=== PATIENT | female | born 1960 | race Caucasian/White ===

== ENCOUNTER 2017-11-11 08:46 | Day surgery (SDC) | payer BC, SELFPAY | END 2017-11-11 09:53 | disposition home or self-care (01) | PROVIDERS: Family Provider Family Medicine; Visit Provider Nurse Anesthetist, Certified Registered | DX: M50.10 Cervical disc disorder with radiculopathy, unspecified cervical region (principal) | CPT/HCPCS: 62321; J1040; Q9966 ==

== ENCOUNTER → 2018-01-09 15:22 | Outpatient (POV) | payer BC, SELFPAY ==
[2018-01-09 15:33] VITALS: BP 122/72; PULSE 69; RESP 18; O2SAT 97; BMI 23.8
--- NOTE | 2018-01-09 15:45 | HMH.PAINSOAP ---
[facility] Pain Management SOAP Note Subjective:: Patient is a pleasant 57-year-old white female who presents today to discuss her cervical neck pain. Patient has just completed a set of 3 cervical epidural steroid injections. She rates her pain a 3 out of 10 today. She states that she is doing very well. Her functionality has increased. Patient states that her daily activities have become easier and her neck pain is almost completely relieved.. ROS General: no recent weight change, no fever, no sleep disturbances Respiratory: no cough, no shortness of air, no recurring pulmonary infections Cardiovascular/Peripheral Vascular: No chest pain, No palpitations, no edema, no shortness of breath. Gastrointestinal: no incontinence, normal bowel movements reported Genitourinary: no incontinence Musculoskeletal: Neck pain Psychiatric: normal mood/ affect Neurological: Weakness at times in bilateral lower extremity, [denies balance issues] Objective:: Physical Exam General: Alert and oriented x3, no acute distress, pleasant and cooperative, [on room air] Lungs: Resps E/U, Symmetrical chest expansion, Eyes: PERRL Musculoskeletal: Flexion and extension of cervical spine somewhat guarded secondary to pain, deep tendon reflexes normal, strength in upper and lower extremities [5/5], normal gait noted Neurological: speech clear, search analyst equal, no gross sensory deficits Assessment:: Degenerative disc disease of the cervical spine and cervical radiculopathy. Plan:: We will follow-up with this patient on an as-needed basis. We had a long discussion about contacting the office when the pain begins to return. Patient will call the office and schedule a follow-up at that time. Patient doing extremely well at this time due to her last 3 cervical epidural steroid injections. This note was dictated using voice recognition software may contain errors or omissions
--- NOTE | 2018-01-09 15:48 | P.CONS_ITS ---
[facility] Pain Management SOAP Note Subjective:: Patient is a pleasant 57-year-old white female who presents today to discuss her cervical neck pain. Patient has just completed a set of 3 cervical epidural steroid injections. She rates her pain a 3 out of 10 today. She states that she is doing very well. Her functionality has increased. Patient states that her daily activities have become easier and her neck pain is almost completely relieved.. ROS General: no recent weight change, no fever, no sleep disturbances Respiratory: no cough, no shortness of air, no recurring pulmonary infections Cardiovascular/Peripheral Vascular: No chest pain, No palpitations, no edema, no shortness of breath. Gastrointestinal: no incontinence, normal bowel movements reported Genitourinary: no incontinence Musculoskeletal: Neck pain Psychiatric: normal mood/ affect Neurological: Weakness at times in bilateral lower extremity, [denies balance issues] Objective:: Physical Exam General: Alert and oriented x3, no acute distress, pleasant and cooperative, [ on room air] Lungs: Resps E/U, Symmetrical chest expansion, Eyes: PERRL Musculoskeletal: Flexion and extension of cervical spine somewhat guarded secondary to pain, deep tendon reflexes normal, strength in upper and lower extremities [5/5], normal gait noted Neurological: speech clear, customs appraiser equal, no gross sensory deficits Assessment:: Degenerative disc disease of the cervical spine and cervical radiculopathy. Plan:: We will follow-up with this patient on an as-needed basis. We had a long discussion about contacting the office when the pain begins to return. Patient will call the office and schedule a follow-up at that time. Patient doing extremely well at this time due to her last 3 cervical epidural steroid injections. This note was dictated using voice recognition software may contain errors or omissions
== END ==
PROVIDERS: Family Provider Family Medicine; PCP Family Medicine; Visit Provider Clinical Nurse Specialist Family Health
DX: M54.12 Radiculopathy, cervical region (principal)
CPT/HCPCS: 99212

== ENCOUNTER → 2019-03-26 15:26 | Outpatient (POV) | payer BC, SELFPAY ==
--- NOTE | 2019-03-26 15:39 | P.CONS_ITS ---
[facility] Pain Management SOAP Note Subjective:: She is a pleasant 58-year-old white female who presents today for follow-up. Patient has had cervical epidural steroid injections and trigger point injections with good relief in the past. Patient is interested in repeating this her pain is begin to return after 4 months. Patient is having muscle s pasms in her neck and upper trapezius. Rates her pain a 4 out of 10. ROS General: no recent weight change, no fever, no sleep disturbances Respiratory: no cough, no shortness of air, no recurring pulmonary infections Cardiovascular/Peripheral Vascular: No chest pain, No palpitations, no edema, no shortness of breath. Gastrointestinal: no incontinence, normal bowel movements reported Genitourinary: no incontinence Musculoskeletal: Myofascial pain Psychiatric: normal mood/ affect Neurological: [denies weakness in extremities], [denies balance issues] Objective:: Physical Exam General: Alert and oriented x3, no acute distress, pleasant and cooperative, [on room air] Lungs: Resps E/U, Symmetrical chest expansion, Eyes: PERRL Musculoskeletal: Flexion and extension of cervical spine somewhat guarded secondary to pain, deep tendon reflexes normal, strength in upper and lower extremities [5/5], normal gait noted, palpable trigger points bilateral cervical paraspinous Neurological: speech clear, sales performance analyst equal, no gross sensory deficits Assessment:: Myofascial pain syndrome Plan:: We will schedule the patient for bilateral cervical paraspinous trigger point injections. Patient has had good relief with these in the past I do believe they would be beneficial for her. I will follow-up with the patient after injection reassess her symptoms at that time. Dr. Pa has reviewed this note and agrees with this plan of care. This note was dictated using voice recognition software and may contain errors or omissions
[2019-03-26 15:48] VITALS: BP 118/89; PULSE 78; RESP 18; O2SAT 98; BMI 25.0
== END ==
PROVIDERS: PCP Family Medicine; Visit Provider Clinical Nurse Specialist Family Health
DX: M79.18 Myalgia, other site (principal)
CPT/HCPCS: 99212

== ENCOUNTER → 2019-05-08 09:02 | Outpatient (POV) | payer BC, SELFPAY ==
--- NOTE | 2019-05-08 09:20 | HMH.PAINSOAP ---
[facility] Pain Management SOAP Note Subjective:: Patient is a pleasant 58-year-old white female who presents today for follow-up after cervical paraspinous trigger point injections. Patient says that she had good relief with this. She rates her pain a 3 out of 10 today. She says she had about 80% relief with this. She is continuing a home stretching program and NSAIDs. ROS General: no recent weight change, no fever, no sleep disturbances Respiratory: no cough, no shortness of air, no recurring pulmonary infections Cardiovascular/Peripheral Vascular: No chest pain, No palpitations, no edema, no shortness of breath. Gastrointestinal: no incontinence, normal bowel movements reported Genitourinary: no incontinence Musculoskeletal: Neck pain Psychiatric: normal mood/ affect, [denies depression], [denies anxiety] Neurological: [denies weakness in extremities], [denies balance issues] Objective:: Physical Exam General: Alert and oriented x3, no acute distress, pleasant and cooperative, [on room air] Lungs: Resps E/U, Symmetrical chest expansion, [CTA bilateral] Eyes: PERRL Musculoskeletal: Flexion and extension of cervical spine somewhat guarded secondary to pain, deep tendon reflexes normal, strength in upper and lower extremities [5/5], normal gait noted Neurological: speech clear, commercial lines account assistant equal, no gross sensory deficits Assessment:: Myofascial pain syndrome Plan:: Overall, the patient is doing well today. She had good relief with the injections. She will call to follow-up with an appointment after she gets back from vacation. She has been instructed to call the office if she has any concerns. Dr. Pa has reviewed this note and agrees with this plan of care. This note was dictated using voice recognition software and may contain errors or omissions
[2019-05-08 09:22] VITALS: BP 112/74; PULSE 73; RESP 18; O2SAT 98; BMI 22.3
--- NOTE | 2019-05-08 09:23 | P.CONS_ITS ---
[facility] Pain Management SOAP Note Subjective:: Patient is a pleasant 58-year-old white female who presents today for follow-up after cervical paraspinous trigger point injections. Patient says that she had good relief with this. She rates her pain a 3 out of 10 today. She says she had about 80% relief with this. She is continuing a home stretching program and NSAIDs. ROS General: no recent weight change, no fever, no sleep disturbances Respiratory: no cough, no shortness of air, no recurring pulmonary infections Cardiovascular/Peripheral Vascular: No chest pain, No palpitations, no edema, no shortness of breath. Gastrointestinal: no incontinence, normal bowel movements reported Genitourinary: no incontinence Musculoskeletal: Neck pain Psychiatric: normal mood/ affect, [denies depression], [denies anxiety] Neurological: [denies weakness in extremities], [denies balance issues] Objective:: Physical Exam General: Alert and oriented x3, no acute distress, pleasant and cooperative, [on room air] Lungs: Resps E/U, Symmetrical chest expansion, [CTA bilateral] Eyes: PERRL Musculoskeletal: Flexion and extension of cervical spine somewhat guarded secondary to pain, deep tendon reflexes normal, strength in upper and lower extremities [5/5], normal gait noted Neurological: speech clear, model maker firearms equal, no gross sensory deficits Assessment:: Myofascial pain syndrome Plan:: Overall, the patient is doing well today. She had good relief with the injections. She will call to follow-up with an appointment after she gets back from vacation. She has been instructed to call the office if she has any concerns. Dr. Pa has reviewed this note and agrees with this plan of care. This note was dictated using voice recognition software and may contain errors or omissions
== END ==
PROVIDERS: PCP Family Medicine; Visit Provider Clinical Nurse Specialist Family Health
DX: M79.18 Myalgia, other site (principal)
CPT/HCPCS: 99212